=== PATIENT | female | born 1975 | race Caucasian/White ===

== ENCOUNTER 2017-01-20 13:42 | Emergency (ER) | payer MEDICAID, MEDICARE ==
[2017-01-20 15:11] VITALS: BP 123/69
--- NOTE | 2017-01-20 15:50 | UC ---
Throat Pain/Nasal Patricio HPI - HPI Summary HPI Summary: complaint of cough nasal congestopn that started yesterday cough has worsened extremely fatigued entire body feels achy sore throat bilateral ear pain coughing so hard she has vomited 2x constant headache hasn't felt feverish but has had chills taking delsum for cough without relief, dayquil, nyquil without relief - History of Current Complaint Chief Complaint: UCRespiratory Stated Complaint: CHILLS COUGH BODYACHES Time Seen by Provider: 01/20/17 15:40 Hx Obtained From: Patient - Allergies/Home Medications Allergies/Adverse Reactions: Allergies Allergy/AdvReac Type Severity Reaction Status Date / Time Codeine Allergy Intermediate Rash Verified 01/20/17 15:11 Meperidine [From Demerol HCl] Allergy Intermediate Rash Verified 01/20/17 15:11 Morphine Allergy Intermediate Rash Verified 01/20/17 15:11 Home Medications: Home Medications [id number] W/ APAP [Delsym Cough + Cold D... 2-97-413-325 mg/10Ml] 1 liq PO PRN 01/20/17 [History] PMH/Surg Hx/FS Hx/Imm Hx Previously Healthy: Yes Cardiovascular History Of: Denies: Pacemaker/ICD - Surgical History Surgical History: Yes Surgery Procedure, Year, and Place: PARTIAL HYSTERECTOMY,4RT TRIGGER FINGER SURGERYS AND 2 LT TRIGGER FINGER, TONSILS, NERVE BLOCKAGE RT ANKLE, 3 RECONSTRUCTION NOSE SURGERYS, SINUS SURGERY X2, APPENDIX, - Family History Known Family History: Negative: Cardiac Disease, Hypertension, Diabetes - Social History Occupation: Employed Full-time Lives: With Family Alcohol Use: None Substance Use Type: None Smoking Status (MU): Never Smoked Tobacco Review of Systems Constitutional: Chills, Fatigue Skin: Negative Eyes: Negative ENT: Sore Throat, Ear Ache, Nasal Discharge Respiratory: Cough Cardiovascular: Negative Gastrointestinal: Vomiting Genitourinary: Negative Motor: Negative Neurovascular: Negative Musculoskeletal: Myalgia Neurological: Headache Psychological: Negative All Other Systems Reviewed And Are Negative: Yes Physical Exam Triage Information Reviewed: Yes Appearance: No Pain Distress, Well-Nourished Vital Signs: Initial Vital Signs Temp 98.1 F 01/20/17 15:07 Pulse 87 01/20/17 15:07 Resp 16 01/20/17 15:07 BP 123/69 01/20/17 15:07 Pulse Ox 100 04/07/17 15:07 Vital Signs Reviewed: Yes Eyes: Positive: Conjunctiva Clear ENT: Positive: Pharyngeal erythema, Nasal congestion, Nasal drainage, TMs normal Neck: Positive: No Lymphadenopathy Respiratory: Positive: Lungs clear, Normal breath sounds, No respiratory distress Cardiovascular: Positive: RRR, No Murmur, Pulses Normal Abdomen Description: Positive: Nontender, Soft Bowel Sounds: Positive: Present Musculoskeletal: Positive: No Edema Neurological: Positive: Alert Psychological Exam: Normal Skin Exam: Normal Throat Pain/Nasal Course/Dx - Differential Dx/Diagnosis Differential Diagnosis/HQI/PQRI: Influenza, Pharyngitis, Tonsillitis Provider Diagnoses: viral illness- influenza like Discharge - Discharge Plan Condition: Stable Disposition: HOME Patient Education Materials: Pharyngitis (ED) Forms: *Work Release Referrals: Black Dale MD [Primary Care Provider] - Additional Instructions: Your blood pressure is pre-hypertensive reading. Please contact your primary care provider within 1 day -4 weeks for further evaluation PHARYNGITIS (Sore Throat) What is Pharyngitis? The medical name for a sore throat is Pharyngitis. It is caused by an infection or irritation of your throat or tonsils. The infection can be caused by a virus or by bacteria. Not everyone with Pharyngitis needs antibiotics. Antibiotics will not make viral infections better, and they will not help a sore throat caused by irritation. Symptoms May Include: Sore throat Swelling of the glands in the neck Trouble or pain with swallowing Fever Headache Cough Extreme tiredness Ear pain Treatment Recommendations: Gargle every few hours with a solution of 1/4 teaspoon of salt dissolved in 1/ 2 cup of warm water. Drink plenty of warm beverages, like tea with lemon, (with or without honey) and soup. You may eat and drink cold foods and liquids like frozen yogurt, popsicles, and ice water if that makes your throat feel better. The goal is to keep you well hydrated. Use a "cool-mist" vaporizer or humidifier in the room where you spend most of your time. If you get a sore throat often, consider adding an electronic air filter and humidifier to your furnace system. Don't smoke. Do not eat spicy foods. Take medicine exactly as prescribed. If you do not think it is helping, call your healthcare provider. Do not increase how much or how often you take it without getting their OK first. Non-prescription anti-inflammatory medicine like ibuprofen (Motrin, Advil) or naproxen (Aleve) may help lessen the pain. You should not take these medicines if you have had bleeding in your stomach in the past. Acetaminophen ( Tylenol) is another choice of medicine that may help the pain. If pain medicine that makes you tired or sleepy or contains narcotics is prescribed, you should not drink, drive, or participate in any other activities that you need to be clear-headed for. Please keep all medicines out of the reach of children. Do not get in close contact with anyone you know who has a sore throat. Use throat lozenges (Cepostat, [place], etc.) or suck on hard candy for temporary relief of the pain with swallowing. (Do not give to children under age 5.) Call Your Doctor or Return Here IF: Your symptoms do not start to get better within 2 days or you become worse. You have a fever over 101.0 F orally. You cant swallow liquids or saliva. You are drooling. You start to have trouble breathing. You start to have a rash. You start to have a stiff neck. You start to have pain in your chest. You start to have any symptoms that are new or worry you.
[2017-01-20] MEDS ORDERED: Ibuprofen TAB* 400 MG PO ONE (15:51)
== END 2017-01-20 16:45 | disposition home or self-care (01) ==
LOC: UCEAST 13:42
DX: B34.9 Viral infection, unspecified (principal); J11.1 Influenza due to unidentified influenza virus with other respiratory manifestations; Z88.5 Allergy status to narcotic agent
CPT/HCPCS: 87502; 87651; 99212; A9270-GY; G0463

== ENCOUNTER 2017-09-12 19:41 | Emergency (ER) | payer BC ==
[2017-09-12 21:06] LABS: Hematocrit 41 % (35-47); Hemoglobin 14.4 g/dl (12.0-16.0); Mean Corpuscular HGB Conc 35 g/dl (31-36); Mean Corpuscular Hemoglobin 30 pg (27-31); Mean Corpuscular Volume 85 fL (80-97); Mean Platelet Volume 7 um3 (7.4-10.4); Red Blood Count 4.89 10^6/ul (4.0-5.4); Red Cell Distribution Width 13 % (10.5-15)
[2017-09-12 21:29] LABS: ALT 9 U/L (7-52); AST 10 U/L (13-39); Alkaline Phosphatase 42 U/L (34-104); Anion Gap 5 mmol/L (2-11); BUN/Creatinine Ratio 9.7 (8-20); Blood Urea Nitrogen 6 mg/dL (6-24); CO2 Carbon Dioxide 25 mmol/L (22-32); Calcium 8.8 mg/dL (8.6-10.3); Chloride 105 mmol/L (101-111); EGFR African American 135.1 (>60); EGFR Non-African American 105.1 (>60); Globulin 2.4 g/dL (2-4); Glucose 92 mg/dL (70-100); Potassium 3.9 mmol/L (3.5-5.0); Sodium 135 mmol/L (133-145); Total Protein 6.4 g/dL (6.4-8.9)
[2017-09-12] MEDS ORDERED: diPHENhydraMINE IV* 50 MG/ML 1 ml VIAL (BENADRYL) IV ONE (21:39)
[2017-09-12] MEDS ORDERED: methylPREDNISolone 125 MG* 2 ML VIAL IV ONE (21:39)
[2017-09-12] MEDS ORDERED: NS 0.9% 1000 ML* 2,000 ML IV ONE (21:39)
[2017-09-12] MEDS ORDERED: Metoclopramide IV* 5 MG/ML 2 ML VIAL IV ONE (21:39)
[2017-09-13] MEDS ORDERED: Metoclopramide IV* 5 MG/ML 2 ML VIAL ONE (00:04)
[2017-09-13 02:46] VITALS: BP 107/64
--- NOTE | 2017-09-13 06:33 | ED ---
Katerin Brown Gabriel, scribed for Zander Slater on 09/12/17 at 2137 . Headache - HPI Summary HPI Summary: This patient is a 42 year old F presenting to [facility] accompanied by with a chief complaint of a YUN since this morning. The patient rates the pain 10/10 in severity and describes it as a pressure and radiating down. Symptoms alleviated by nothing. Pt has taken Tylenol and Ibuprofen with no relief. Patient reports ringing in her ears and vomiting. Patient denies neck stiffness , fever, and recent infections. Pt states she has no history of HAs and denies any sensitive to light or sound - History Of Current Complaint Chief Complaint: EDHeadache Stated Complaint: MIGRAINE/VOMITING Time Seen by Provider: 09/12/17 21:32 Hx Obtained From: Patient Onset/Duration: Sudden Onset, Still Present Timing: Constant Character: Pressure Allevating Factors: Nothing Associated Signs And Symptoms: Negative - neck stiffness, fever, and recent infections, Vomiting - Allergies/Home Medications Allergies/Adverse Reactions: Allergies Allergy/AdvReac Type Severity Reaction Status Date / Time Codeine Allergy Intermediate Rash Verified 01/20/17 15:11 Meperidine [From Demerol HCl] Allergy Intermediate Rash Verified 01/20/17 15:11 Morphine Allergy Intermediate Rash Verified 01/20/17 15:11 PMH/Surg Hx/FS Hx/Imm Hx Previously Healthy: No Endocrine/Hematology History: Denies: Hx Diabetes Cardiovascular History: Reports: Other Cardiovascular Problems/Disorders - cardiomegaly Denies: Hx Hypertension, Hx Pacemaker/ICD Sensory History: Denies: Hx Hearing Aid Psychiatric History: Denies: Hx Panic Disorder - Surgical History Surgery Procedure, Year, and Place: PARTIAL HYSTERECTOMY,4RT TRIGGER FINGER SURGERYS AND 2 LT TRIGGER FINGER, TONSILS, NERVE BLOCKAGE RT ANKLE, 3 RECONSTRUCTION NOSE SURGERYS, SINUS SURGERY X2, APPENDIX, Infectious Disease History: No Infectious Disease History: Denies: Traveled Outside the [place] in Last 30 Days - Family History Known Family History: Negative: Cardiac Disease, Hypertension, Diabetes - Social History Alcohol Use: None Hx Substance Use: No Substance Use Type: Reports: None Hx Tobacco Use: No Smoking Status (MU): Never Smoked Tobacco Review of Systems Constitutional: Negative - recent infections Negative: Fever Positive: Other - ringing in her ears Positive: Vomiting Negative: Myalgia - in neck Positive: Headache All Other Systems Reviewed And Are Negative: Yes Physical Exam - Summary Physical Exam Summary: Appearance: Well appearing, no pain distress Skin: warm, dry, reflects adequate perfusion Head/face: normal Eyes: EOMI, DENISE ENT: normal Neck: supple, non-tender Respiratory: CTA, breath sounds present Cardiovascular: RRR, pulses symmetrical Abdomen: non-tender, soft Bowel: present Musculoskeletal: normal, strength/ROM intact Neuro: normal, sensory motor intact, A&Ox3 Triage Information Reviewed: Yes Vital Signs On Initial Exam: Initial Vitals Temp Pulse Resp BP Pulse Ox 97.0 F 97 16 133/84 98 09/12/17 19:50 09/12/17 19:50 09/12/17 19:50 09/12/17 19:50 09/12/17 19:50 Vital Signs Reviewed: Yes Diagnostics - Vital Signs Vital Signs Temp Pulse Resp BP Pulse Ox 09/12/17 19:50 97.0 F 97 16 133/84 98 - Laboratory Lab Results: Lab Results 09/12/17 09/12/17 09/12/17 Range/Units 20:54 20:54 20:54 WBC 7.0 (3.5-10.8) 10^3/ul RBC 4.89 (4.0-5.4) 10^6/ul Hgb 14.4 (12.0-16.0) g/dl Hct 41 (35-47) % MCV 85 (80-97) fL MCH 30 (27-31) pg MCHC 35 (31-36) g/dl RDW 13 (10.5-15) % Plt Count 285 (150-450) 10^3/ul MPV 7 L (7.4-10.4) um3 Neut % (Auto) 72.2 (38-83) % Lymph % (Auto) 19.6 L (25-47) % [place] % (Auto) 5.0 (1-9) % Eos % (Auto) 3.0 (0-6) % Baso % (Auto) 0.2 (0-2) % Absolute Neuts (auto) 5.0 (1.5-7.7) 10^3/ul Absolute Lymphs (auto) 1.4 (1.0-4.8) 10^3/ul Absolute Monos (auto) 0.4 (0-0.8) 10^3/ul Absolute Eos (auto) 0.2 (0-0.6) 10^3/ul Absolute Basos (auto) 0 (0-0.2) 10^3/ul Absolute Nucleated RBC 0 10^3/ul Nucleated RBC % 0 INR (Anticoag Therapy) 0.83 L (0.89-1.11) APTT 26.5 (26.0-36.3) seconds Sodium 135 (133-145) mmol/L Potassium 3.9 (3.5-5.0) mmol/L Chloride 105 (101-111) mmol/L Carbon Dioxide 25 (22-32) mmol/L Anion Gap 5 (2-11) mmol/L BUN 6 (6-24) mg/dL Creatinine 0.62 (0.51-0.95) mg/dL Est GFR ( Amer) 135.1 (>60) Est GFR (Non-Af Amer) 105.1 (>60) BUN/Creatinine Ratio 9.7 (8-20) Glucose 92 (70-100) mg/dL Calcium 8.8 (8.6-10.3) mg/dL Total Bilirubin 0.30 (0.2-1.0) mg/dL AST 10 L (13-39) U/L ALT 9 (7-52) U/L Alkaline Phosphatase 42 (34-104) U/L C-React Prot High Sens 0.69 mg/L Total Protein 6.4 (6.4-8.9) g/dL Albumin 4.0 (3.2-5.2) g/dL Globulin 2.4 (2-4) g/dL Albumin/Globulin Ratio 1.7 (1-3) Beta HCG, Quant < 0.60 mIU/mL Result Diagrams: 09/12/17 20:54 09/12/17 20:54 Lab Statement: Any lab studies that have been ordered have been reviewed, and results considered in the medical decision making process. - CT CT Head CT Interpretation Completed By: Radiologist - No evidence for acute disease. ED physician has reviewed this radiology report and agrees. Headache Course/Dx - Course Assessment/Plan: This patient is a 42 year old F presenting to [facility] accompanied by with a chief complaint of a YUN since this morning. CT Head reveals, per radiologist, No evidence for acute disease. Blood work was drawn with no significant results. Patient will be discharged with prescription for Diclofenac and methylprednisolone and follow up from Dr. Dale in 3 days. Pt discharged with diagnoses of headache. The patient is agreeable with this plan. - Diagnoses Differential Diagnosis/HQI/PQRI: Migraine, Sinus Headache, Tension Headache, Other - intracranial bleeding Provider Diagnoses: Headache Discharge - Discharge Plan Condition: Stable Disposition: HOME Prescriptions: Diclofenac Sodium EC TAB* [Voltaren EC TAB*] 50 mg PO TID PRN #20 tab.ec MDD 3 PRN Reason: Pain Methylprednisolone [Medrol Dosepak 4 MG*] 0 mg PO .SEE SANTOS INSTRUCTION #1 tab Patient Education Materials: Diclofenac (By mouth), Methylprednisolone (By mouth), Tension Headache (ED) Referrals: Black Dale MD [Primary Care Provider] - 3 Days Additional Instructions: RETURN TO THE EMERGENCY DEPARTMENT FOR CHANGING OR WORSENING SYMPTOMS. The documentation as recorded by the Katerin orellana Gabriel accurately reflects the service I personally performed and the decisions made by Nohemy kendall Emmanuel.
== END 2017-09-13 02:45 | disposition home or self-care (01) ==
LOC: ED 19:41
DX: R51 Headache (principal); H93.13 Tinnitus, bilateral; R11.10 Vomiting, unspecified; Z32.02 Encounter for pregnancy test, result negative; I51.7 Cardiomegaly; Z90.711 Acquired absence of uterus with remaining cervical stump; Z88.5 Allergy status to narcotic agent
CPT/HCPCS: 36415; 70450; 80053; 84702; 85025; 85610; 85730; 86141; 96374; 96375; 99282; J1200; J2765; J2930

== ENCOUNTER 2018-06-01 10:06 | Day surgery (SDC) | payer BC ==
--- NOTE | 2018-05-17 15:15 | HP ---
PREOPERATIVE HISTORY AND PHYSICAL: DATE OF ADMISSION: 06/01/2018 [facility] CHIEF COMPLAINT: Numbness and tingling in the right hand. HISTORY OF PRESENT ILLNESS: Shari is a 42-year-old female who has over 6 to 7 months of numbness, tingling, and pain in her right hand. She had a nerve conduction study, which was negative for carpal tunnel syndrome, but she had a carpal tunnel injection, which gave her significant relief and therefore was diagnostic of carpal tunnel syndrome. 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 She presents for right carpal tunnel release. PAST SURGICAL HISTORY: Bilateral trigger finger releases, hysterectomy, tonsillectomy, ovarian cystectomy, surgery for right lateral malleolus injury, and reconstructive rhinoplasty x5. MEDICATIONS: None. ALLERGIES: MORPHINE causes anaphylaxis as does CODEINE, DEMEROL, IODINE, BETADINE, and NOVOCAIN. FAMILY HISTORY: Stomach ulcers, diabetes. 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 She has 4 children in good health. She smokes 10 cigarettes a week for the past 2 years. She denies alcohol use. Denies recreational drug use. REVIEW OF SYSTEMS: Negative for general, HEENT, skin, cardiovascular, respiratory, GI, , other musculoskeletal, endocrine, hematologic symptoms. Her past medical history is negative for negative for MRSA, hepatitis C, HIV. PHYSICAL EXAMINATION GENERAL: She is a healthy-appearing, 42-year-old female in no acute distress. VITAL SIGNS: Height is 60 inches, weight 152, pulse 84, respirations 16, temp 95.3. HEENT: Unremarkable aside from the fact that she has very poor dentition. NECK: She has good range of motion of her neck without pain. PULMONARY: Lungs are clear to auscultation. No wheezing. Good inspiratory effort. CARDIAC: Regular rate and rhythm without murmur. ABDOMEN: Soft, nontender. PERIPHERAL VASCULAR: She has palpable pulses and no peripheral edema. MUSCULOSKELETAL: She has good range of motion of her fingers. She has significant sensitivity of her median nerve with nerve compression test and Tinel's sign at the wrist. She lacks some range of motion in full extension and flexion. NEUROLOGIC: She is alert and oriented without focal deficits. IMPRESSION: Right carpal tunnel syndrome. PLAN: The plan is for right carpal tunnel release. The surgical procedure, risks, and benefits were explained to the patient today and she agrees to proceed. [id number]/[facility] #: [id number] MTDD
[~2018-06-01 10:06] MED LIST: Acetaminophen TAB* 325 MG PO PRN; Buffered Lidocaine 0.9% SYRIN* 5 ML/SYR SYRINGE INTRADERM ONE; Dexamethasone TAB* 4 MG ONE; Dexamethasone TAB* 4 MG PO ONE; DiMENhydriNATE IV* 50 MG/ML VIAL IV PUSH PRN; Famotidine IV* 10 MG/ML 2 ML (20 mg) IV ONE; Famotidine IV* 10 MG/ML 2 ML (20 mg) ONE; Lidocaine 1% INJ* 10 MG/ML 30 ML SDV ONE; Naloxone* 0.4 MG/ML 1 ML VIAL IV PRN; Ondansetron ODT TAB* 4 MG ONE; Ondansetron TAB* 4 MG PO ONE; PROCHLORPERAZINE INJ 5 MG/ML 2 ML VIAL IV PRN; ceFAZolin 2 GM PREMIX (*) 0 GM/0 ML BAG IVPB ONE
[2018-06-01] MEDS ORDERED: Midazolam* 1 MG/ML 5 ML VIAL (5 MG) ONE (10:52)
[2018-06-01] MEDS ORDERED: fentaNYL* 50 MCG/ML 2 ML VIAL (100 MCG VIAL) ONE ×2 (10:52→11:22)
[2018-06-01 12:45] VITALS: BP 101/59
--- NOTE | 2018-06-01 21:23 | OP ---
DATE OF OPERATION: 06/01/18 [facility] DATE OF : 73 SURGEON: Janae Mullins MD SCREW DRIVER OPERATOR: EMMA Holliday. ANESTHESIA: Local MAC. PRE-OP DIAGNOSIS: Right carpal tunnel syndrome. POST-OP DIAGNOSIS: Right carpal tunnel syndrome. OPERATIVE PROCEDURE: Right carpal tunnel release. INDICATIONS FOR PROCEDURE: Shari is a 42-year-old female with numbness and tingling in the medial nerve distribution of her right hand. She presents for right carpal tunnel release. ESTIMATED BLOOD LOSS: Zero. TOURNIQUET TIME: Approximately 10 minutes. DESCRIPTION OF PROCEDURE: The patient was brought to the operating room, was given a sedation anesthetic and a local infiltration of 10 cc of 1% plain lidocaine in the palm of her right hand. The skin of her right hand and forearm was prepped and draped in usual sterile fashion. The hand and forearm were exsanguinated and the tourniquet elevated to 250 mmHg. A longitudinal incision was made to the palm in line with the ring finger. We dissected sharply through the subcutaneous tissue down to the transverse carpal ligament. The ligament was divided sharply with a knife and then more proximally with the scissors. The nerve was dissected free from the surrounding tissue and there was an area of moderate compression at the mid portion of the ligament. The wound was irrigated and the skin edges were reapproximated with 4-0 nylon suture. The wound was dressed with Xeroform, 4x4, Webril, and Bello wrap. The patient tolerated the procedure well and was brought to the recovery room in good condition. [id number]/[facility] #: [id number] [facility] HOSPITALBryan
== END 2018-06-01 13:10 | disposition home or self-care (01) ==
LOC: OREAST 10:06
PROVIDERS: ATTEND Orthopaedic Surgery
DX: G56.01 Carpal tunnel syndrome, right upper limb (principal); Z72.0 Tobacco use
CPT/HCPCS: A9270-GY; J0690; J2250; J3010; J8540

== ENCOUNTER 2018-09-28 09:13 | Day surgery (SDC) | payer MEDICARE, MEDICAID ==
--- NOTE | 2018-09-24 01:58 | HP ---
PREOPERATIVE HISTORY AND PHYSICAL: DATE OF ADMISSION/SURGERY: 09/28/18 DATE OF OFFICE VISIT/ENCOUNTER: 09/20/18 ATTENDING SURGEON: Janae Mullins MD * (DICTATED BY EMMA MOYER) PROCEDURE: Right thumb CMC joint arthroplasty, pisiform excision. CHIEF COMPLAINT: Pain, base of thumb and at pisotriquetral joint. HISTORY OF PRESENT ILLNESS: This is a 43-year-old female, who has had ongoing pain at the base of her right thumb and in the area of the pisiform of her right wrist. 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 She has had an MRI of the right wrist, which showed CMC joint arthritis at the base of the right thumb and pisotriquetral arthritis. She would like to proceed with surgical intervention for both of these problems. PAST MEDICAL HISTORY: None. PAST SURGICAL HISTORY: 1. Right carpal tunnel release. 2. Bilateral trigger finger releases. 3. Hysterectomy. 4. Tonsillectomy. 5. Ovarian cystectomy. 6. Surgery for right lateral malleolus injury. 7. Reconstructive rhinoplasty x5. CURRENT MEDICATIONS: Ibuprofen 200 mg q.8 hours p.r.n. ALLERGIES: MORPHINE causes anaphylaxis, as does CODEINE, DEMEROL, IODINE, BETADINE, and NOVOCAINE. FAMILY HISTORY: Stomach ulcers and diabetes. 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 She has 4 children, in good health. She is a current smoker, approximately 10 cigarettes a day for the past 3 years. She denies recreational drug use and does not drink alcohol. REVIEW OF SYSTEMS: Negative for general, cephalic, cardiovascular, respiratory , GI, , other musculoskeletal, and hematologic symptoms. Infectious disease is negative for MRSA, hepatitis C, HIV. PHYSICAL EXAMINATION GENERAL: Well-developed, well-nourished, 43-year-old female, in no acute distress. VITAL SIGNS: Height 5 ft, , weight 150 pounds, pulse rate 92, blood pressure 146/90. HEENT: Normocephalic, atraumatic. Pupils are equal, round, and reactive to light and accommodation. Extraocular movements are intact. Throat is clear. NECK: Supple. No palpable lymph nodes. PULMONARY: Lungs are clear to auscultation bilaterally. No wheezes, rales, or rhonchi. CARDIOVASCULAR: Regular rate and rhythm. S1, S2. No murmurs, rubs, or gallops. No edema. ABDOMEN: Positive bowel sounds, soft, nontender. NEUROLOGIC: Alert and oriented x3. Cranial nerves II through XII are intact. Sensation is intact to light touch. MUSCULOSKELETAL: On exam of her right hand and wrist, there is no visible swelling or erythema. The patient has tenderness to palpation at the thumb CMC joint and at the pisotriquetral joint. She has good motion in her thumb, but increased pain at extremes of range. She has a positive grind test. Neurovascular function is intact. 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 PLAN: The patient is scheduled to undergo a right thumb CMC joint arthroplasty and a pisiform excision with Dr. Mullins on 09/28/18. She will return to the office 10 days postop for followup and suture removal. A prescription for Ultracet was e- scribed to the patient's pharmacy for postoperative pain management. EMMA MOYER [id number]/[facility] #: [id number] EVER
[~2018-09-28 09:13] MED LIST changes: -Acetaminophen TAB* 325 MG PO PRN; -Buffered Lidocaine 0.9% SYRIN* 5 ML/SYR SYRINGE INTRADERM ONE; -Dexamethasone TAB* 4 MG ONE; -Dexamethasone TAB* 4 MG PO ONE; -DiMENhydriNATE IV* 50 MG/ML VIAL IV PUSH PRN; -Famotidine IV* 10 MG/ML 2 ML (20 mg) IV ONE; -Famotidine IV* 10 MG/ML 2 ML (20 mg) ONE; +Lactated Ringers 1000 ML Bag* 1,000 ML IV SCH; -Lidocaine 1% INJ* 10 MG/ML 30 ML SDV ONE; -Naloxone* 0.4 MG/ML 1 ML VIAL IV PRN; -Ondansetron ODT TAB* 4 MG ONE; -Ondansetron TAB* 4 MG PO ONE; -PROCHLORPERAZINE INJ 5 MG/ML 2 ML VIAL IV PRN; -ceFAZolin 2 GM PREMIX (*) 0 GM/0 ML BAG IVPB ONE
[2018-09-28] MEDS ORDERED: ceFAZolin 2 GM PREMIX in ORs 2 GM/50 ML BAG IVPB ONE (09:23)
[2018-09-28] MEDS ORDERED: Midazolam* 1 MG/ML 2 ML VIAL (2 MG) ONE (10:03)
[2018-09-28] MEDS ORDERED: diPHENhydraMINE IV* 50 MG/ML 1 ml VIAL (BENADRYL) ONE (10:25)
[2018-09-28] MEDS ORDERED: Famotidine IV* 10 MG/ML 2 ML (20 mg) ONE (10:26)
[2018-09-28] MEDS ORDERED: ROPIVACAINE 5 MG/ML 30 ML BTL (0.5%) ONE ×2 (10:28→11:00)
[2018-09-28] MEDS ORDERED: Propofol* 10 MG/ML 20 ML BTL ONE ×2 (10:46→12:16)
[2018-09-28] MEDS ORDERED: Dexamethasone IV* 4 MG/ML 1 ML (4 MG) ONE ×2 (10:46→12:27)
[2018-09-28] MEDS ORDERED: Lidocaine 2% PF * 5 ML VIAL ONE ×2 (10:46→12:16)
[2018-09-28] MEDS ORDERED: Ketorolac INJ* 30 MG/ML 1 ML VIAL ONE ×2 (10:46→13:00)
[2018-09-28] MEDS ORDERED: Ondansetron INJ* 2 MG/ML VIAL ONE (10:46)
[2018-09-28] MEDS ORDERED: fentaNYL* 50 MCG/ML 2 ML VIAL (100 MCG VIAL) ONE (10:48)
[2018-09-28] MEDS ORDERED: diPHENhydraMINE IV* 50 MG/ML 1 ml VIAL (BENADRYL) IV PRN (11:07)
[2018-09-28] MEDS ORDERED: DiMENhydriNATE IV* 50 MG/ML VIAL IV PUSH PRN (11:07)
[2018-09-28] MEDS ORDERED: PROCHLORPERAZINE INJ 5 MG/ML 2 ML VIAL IV PRN (11:07)
[2018-09-28] MEDS ORDERED: Ondansetron INJ* 2 MG/ML VIAL IV PRN (11:07)
[2018-09-28] MEDS ORDERED: Levalbuterol 0.63MG/3ML NEB* UNIT OF USE INH PRN (11:07)
[2018-09-28] MEDS ORDERED: Acetaminophen IV 1GM/100ML * 1,000 MG/100 ML VIAL IVPB ONE (11:07)
[2018-09-28] MEDS ORDERED: Naloxone* 0.4 MG/ML 1 ML VIAL IV PRN (11:07)
[2018-09-28] MEDS ORDERED: Labetalol IV* 5 MG/ML 20 ML VIAL ONE (11:10)
[2018-09-28] MEDS ORDERED: traMADol TAB* 50 MG ONE (12:01)
[2018-09-28 12:08] VITALS: BP 108/61
[2018-09-28] MEDS ORDERED: Levalbuterol HFA INHALER* 1 PUFF MDI ONE (12:58)
--- NOTE | 2018-09-29 06:57 | OP ---
DATE OF OPERATION: 09/28/18 - [facility] DATE OF : 73 SURGEON: Janae Mullins MD WET CHEMISTRY ANALYST: EMMA Holliday ANESTHESIA: General. 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 OPERATIVE PROCEDURE: Right pisiform excision and right thumb carpometacarpal arthroplasty. INDICATION FOR PROCEDURE: Shari is a 43-year-old female with painful arthritis at the pisotriquetral joint of her right wrist as well as thumb carpometacarpal arthritis. She has failed conservative treatment and presents for CMC arthroplasty of the right thumb and pisiform excision of the right wrist. ESTIMATED BLOOD LOSS: Zero. TOURNIQUET TIME: About 40 minutes. DESCRIPTION OF PROCEDURE: The patient was brought to the operating room, was given a general anesthetic and placed in the supine position on the operating table with a tourniquet around her right upper arm. The skin of her right upper extremity was prepped and draped in the usual sterile fashion. The upper extremity was exsanguinated and the tourniquet elevated to 250 mmHg. A Chevron incision was made centered over the pisiform and dissected through the subcutaneous tissue down to the FCU tendon. The tendon was split longitudinally in the center and subperiosteally dissected off of the pisiform. The pisiform was removed in its entirety and there was significant degeneration of the articular surface. It was sent for pathology. The FCU tendon was repaired with 2-0 Vicryl suture and then the skin edges were reapproximated with 4-0 nylon suture. Next, a curved S-shaped incision was made centered over the CMC joint of the right thumb. We dissected bluntly through the subcutaneous tissue and branches of the radial sensory nerve were located and retracted by the surgical consultant, Dorota Lu. The first compartment tendons were retracted and then the radial artery was dissected off of the CMC joint capsule and retracted by the surgical consultant, Dorota Lu , whose assistance was essential for safe completion of the case. A distally based U- shaped flap was created then of the thumb CMC joint capsule and subperiosteally dissected off the trapezium. Trapezium was removed in its entirety. The STT joint was visualized and was in good condition. The FCR tendon was in good condition. The wound was irrigated and then the CMC joint capsule was secured to the FCR tendon with 4-0 nylon suture and this repositioned the metacarpal in a very nice position, interposed tissue between the proximal aspect of the metacarpal and the other carpal bones. The remainder of the capsule was repaired with 4-0 nylon suture and then the skin edges were reapproximated with 4-0 nylon suture. The wounds were dressed with Xeroform, 4x4, Webril, and a thumb spica splint. The patient tolerated the procedure well and was brought to the recovery room in good condition. [id number]/[facility] #: [id number] EVER
== END 2018-09-28 12:35 | disposition home or self-care (01) ==
LOC: OREAST 09:13
PROVIDERS: ATTEND Orthopaedic Surgery
DX: M18.11 Unilateral primary osteoarthritis of first carpometacarpal joint, right hand (principal); M19.031 Primary osteoarthritis, right wrist; I51.7 Cardiomegaly; F17.210 Nicotine dependence, cigarettes, uncomplicated
CPT/HCPCS: 88304; 88311; A9270-GY; J0690; J1100; J1200; J1885; J2250; J2405; J2704; J2795; J3010